=== PATIENT | female | born 1940 | race Caucasian/White ===

== ENCOUNTER 2020-04-10 07:20 | Day surgery (SDC) | payer MEDICARE, OTHER ==
[~2020-04-10] VITALS: Ht 152.4 cm; Wt 61.2 kg
--- NOTE | ~2020-04-10 | OR ---
[facility] [address] [place], [place] [address] Draft DATE OF OPERATION: 04/10/2020 SURGEON: Ross Moreno MD PREOPERATIVE DIAGNOSES: 1. Left lower abdominal pain. 2. Right perineal skin lesion described by patient. 3. Dysphagia and distant history of Hill repair in 2010 with previous diagnosis of eosinophilic esophagitis. POSTOPERATIVE DIAGNOSES: 1. 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 2. Antral gastritis. 3. Intact flap valve at GE junction. 4. Normal colon except for mild edema and inflammation of rectosigmoid and rectum. PROCEDURES: 1. Esophagogastroduodenoscopy with biopsy. 2. Total colonoscopy to cecum with biopsy. ANESTHESIA: Intravenous sedation, fentanyl 150 mcg, Versed 8 mg total. INDICATION: This 80-year-old white woman is a patient of Dr. Gonsalez and well known to me from the past. In 2008, she underwent Hill posterior gastropexy for intractable reflux disease. This did solve her reflux though she later developed dysphagia requiring balloon dilation in 2014. Subsequent upper endoscopy by me showed what was considered eosinophilic esophagitis based on biopsies. Admittedly, the midesophageal biopsies did not show eosinophilic changes, the distal esophagus did. She was subsequently evaluated by a punch machine operator at [facility], who disputed the idea of the eosinophilic esophagitis. She continues to have episodes of dysphagia. Motility testing was offered to her at [facility], but she declined as there would be nothing therapeutically that could be offered if she did have dysmotility. In any case, she currently has complaints of dysphagia, though she does take Protonix 40 mg b.i.d. She has no hematemesis or weight loss problems. Her swallowing is not nearly as bad as it was in the past, but remains an issue for her. Additionally, she has left lower abdominal pain and has not had colonoscopy in quite some time. She is admitted at this time to undergo upper endoscopy and colonoscopy. PATIENT NAME: LUIS PRECIADO OPERATIVE REPORT DATE OF : 40 REPORT #: [id number] PHYSICIAN: ROSS MORENO MD PCP: SUN GONSALEZ MD REPORT IS CONFIDENTIAL AND NOT TO BE RELEASED WITHOUT AUTHORIZATION [facility] [address] [place], [place] [address] Draft She understands the risks of bleeding, infection, perforation. FINDINGS: Upper endoscopy did show concentric rings within the esophagus highly suggestive of eosinophilic esophagitis. There was distal esophageal stricture, which was broken up by passage of the scope into the stomach. She did have antral gastritis and mild duodenitis. CLOtest was negative. Biopsies were obtained. Notably, the flap valve from Hill reconstruction was still intact and looked quite good actually. On colonoscopy, the prep was good. Complete colonoscopy was undertaken of the cecum with no sign of polyps or diverticular formation, though she did have edema and mild inflammation in the rectum and rectosigmoid. DESCRIPTION OF PROCEDURE: The patient was brought to the endoscopy suite and given topical Hurricaine spray hypopharyngeal anesthesia and placed in lateral decubitus position. She was given intravenous sedation to the point of slurred speech and nystagmus with full cardiopulmonary monitoring. A bite block was placed. An Olympus video upper endoscope passed in the hypopharynx. The vocal cords appeared normal and scope was passed in the esophagus and concentric rings of the esophagus were noted suggestive of eosinophilic esophagitis. In the distal portion, there was a more dense stricture and initially, the scope did not easily pass into the stomach, but then with gentle pressure did and the scope was then passed into the stomach and antral folds were normal. There was edema and inflammation of the antrum. Pylorus was normal. Scope was passed through it into the duodenum, the duodenum was mildly inflamed. Biopsies were taken of the duodenum. The scope was withdrawn and biopsy was then taken of the antrum. NINA and pathologic testing were undertaken as well. Retroflexed view showed the flap valve to be of good configuration surprisingly so. The scope was withdrawn to the distal esophagus and areas of denuded epithelium from passage of the scope were observed. Biopsies were taken of distal esophageal mucosa and further biopsies taken more proximally in the mid and proximal esophagus. Plans were then made for colonoscopy. The patient asked me to examine the perineum as she had a "sore" in the right perineal area. Examination showed a somewhat papillary, but generally flattened skin lesion without true excoriation or ulceration. It was not clearly malignant, though there was some suspicion about it. The scope was then passed into the rectum and manipulated throughout the colon ultimately intubating the cecum. The scope was carefully withdrawn and examination showed no sign of polyps, obvious diverticular formation, colitis, or cancer. There was mild inflammation of the sigmoid and rectum and biopsies were obtained there. She had some hemorrhoidal changes as well. A photo was taken of the perineal lesion as well. The scope was removed and the patient was taken to the recovery room in good condition. CONCLUDING DIAGNOSES: PATIENT NAME: LUIS PRECIADO OPERATIVE REPORT DATE OF : 40 REPORT #: [id number] PHYSICIAN: ROSS MORENO MD PCP: SUN GONSALEZ MD REPORT IS CONFIDENTIAL AND NOT TO BE RELEASED WITHOUT AUTHORIZATION [address] [place] [address] Draft 1. Distal esophageal stricture with antral gastritis. I remain suspicious of the eosinophilic esophagitis given her symptoms and clinical course, we await pathology. 2. Mild edema of rectum and sigmoid. Likely to be pathologically inconsequential, but biopsies were pending. The perineal skin lesion should be biopsied at minimum. PLAN: She will see us back in the office in 4 weeks or so and I will review her options on all these matters. MD CIARA Stafford/DELLA /[id number] cc: Dr. Gonsalez Copies: ~ PATIENT NAME: LUIS PRECIADO OPERATIVE REPORT DATE OF : 40 REPORT #: [id number] PHYSICIAN: ROSS MORENO MD PCP: SUN GONSALEZ MD REPORT IS CONFIDENTIAL AND NOT TO BE RELEASED WITHOUT AUTHORIZATION
[~2020-04-10 07:20] MED LIST: ASPIRIN EC81 MG PO; CEPHALEXIN250 MG PO; CLOBETASOL PROP15 G1 TOP; DOXEPIN HCL50 MG PO; FLOVENT HFA12 GM INH; KEFLEX500 MG PO; LEVOTHYROXINE50 MCG PO; LEVOTHYROXINE75 MCG PO; LOVASTATIN20 MG PO; PANTOPRAZOLE SO40 MG PO; SUCRALFATE1 GM PO; SULFAZINE500 MG PO
[2020-04-10] MEDS ORDERED: PROMETHAZINE HC25 M1 PO (07:42)
[2020-04-10] MEDS ORDERED: RIZATRIPTAN5 MG PO (07:42)
--- NOTE | 2020-04-10 08:10 | NUR ---
PER PT, ONLY BANDAIDS CAUSE SKIN IRRITATION, NOT TAPE. IV TUBING SECURED ON FOREARM WITH TAPE.
--- NOTE | 2020-04-10 10:38 | NUR ---
04/10/20 1038 Vane Gresham 1029 PT ARRIVED IN PACU SLEEPY WITH NO C/O'S. ABD SOFT.
--- NOTE | 2020-04-11 18:01 | PATH ---
[facility] [address] [place], [place] [address] Signed SPECIMEN(S): A DUODENUM SPECIMEN(S): B ANTRUM SPECIMEN(S): C LOWER ESOPHAGUS SPECIMEN(S): D MIDDLE ESOPHAGUS SPECIMEN(S): E SIGMOID SPECIMEN(S): F RECTUM SPECIMEN SOURCE: A. DUODENUM B. ANTRUM C. LOWER ESOPHAGUS D. MIDDLE ESOPHAGUS E. SIGMOID F. RECTUM CLINICAL HISTORY: Oropharyngeal dysphagia, eosinophilic esophagitis, left lower abdominal pain. Post op: Mild proctitis, esophagitis, probable eosinophilic esophagitis. MICROSCOPIC DESCRIPTION: Histologic sections of all submitted blocks are examined by light microscopy. These findings, together with the gross examination, support the pathologic diagnosis. FINAL PATHOLOGIC DIAGNOSIS: A. Duodenum, biopsy: - Duodenal mucosa with no histopathologic abnormality. - Negative for increased intraepithelial lymphocytes. - Negative for dysplasia or malignancy. B. Stomach, antrum, biopsy: - Antral mucosa with reactive gastropathy. - Negative for Helicobacter organisms on HE stain. - Negative for dysplasia or malignancy. C. Esophagus, lower, biopsy: - Squamous mucosa with acute and chronic inflammation and reactive changes. - Focal non-invasive fungal forms identified. - Negative for increased intraepithelial eosinophils. - Negative for intestinal metaplasia, dysplasia, or malignancy. - See Comment. D. Esophagus, middle, biopsy: - Squamous mucosa with acute and chronic inflammation and reactive changes. - Negative for increased intraepithelial eosinophils. PATIENT NAME: LUIS PRECIADO PATHOLOGY DATE OF : 40 REPORT #: [id number] PHYSICIAN: CINTHIA PATHOLOGY PCP: SUN GUERRA MD REPORT IS CONFIDENTIAL AND NOT TO BE RELEASED WITHOUT AUTHORIZATION [facility] [address] [place], [place] [address] Signed - Negative for intestinal metaplasia, dysplasia, or malignancy. - See Comment. E. Colon, sigmoid, biopsy: - Fragments of colonic mucosa with no histopathologic abnormality. - Negative for dysplasia or malignancy. F. Rectum, biopsy: - Fragments of rectal mucosa with no histopathologic abnormality. - Negative for dysplasia or malignancy. COMMENT: Regarding specimens C and D: PAS/D stains (with appropriately staining controls) are performed. The lower esophageal biopsy demonstrates focal fragments of fungal hyphae above the squamous mucosa; however, fungal organisms are not seen invading within the mucosa. This could represent superficial colonization by Angie. The middle esophageal biopsy is negative for fungal organisms on PAS/D. Viral cytopathic changes are not identified. The findings could be secondary to reflux esophagitis. NAL:cml:C2NR GROSS DESCRIPTION: Six specimens are received in six containers, labeled "BM." A. The specimen, labeled "BM, duodenal biopsy," is received in formalin and consists of two vega soft tissue fragments that measure 0.1 cm in greatest dimension. The specimen is entirely submitted in cassette (A1). B. The specimen, labeled "BM, antrum biopsy," is received in formalin and consists of two vega soft tissue fragments that measure 0.2 cm in greatest dimension. The specimen is entirely submitted in cassette (B1). C. The specimen, labeled "BM, lower esophagus biopsy," is received in formalin and consists of four vega soft tissue fragments that measure 0.2 cm in greatest dimension. The specimen is entirely submitted in cassette (C1). D. The specimen, labeled "BM, mid esophagus biopsy," is received in formalin and consists of multiple vega soft tissue fragments that measure 1.7 x 1.5 x 0.2 cm aggregate. The specimen is entirely submitted in cassette (D1). E. The specimen, labeled "BM, sigmoid colon biopsy," is received in formalin and consists of two vega soft tissue fragments that measure 0.2 cm in greatest PATIENT NAME: LUIS PRECIADO PATHOLOGY DATE OF : 40 REPORT #: [id number] PHYSICIAN: CINTHIA URENA PCP: SUN GUERRA MD REPORT IS CONFIDENTIAL AND NOT TO BE RELEASED WITHOUT AUTHORIZATION [facility] [address] [place], [place] [address] Signed dimension. The specimen is entirely submitted in cassette (E1). F. The specimen, labeled "BM, rectum biopsy," is received in formalin and consists of two vega soft tissue fragments that measure 0.2 cm in greatest dimension. The specimen is entirely submitted in cassette (F1). JS (under the direct supervision of a pathologist) The Gross Description was prepared using a voice recognition system. The report was reviewed for accuracy; however, sound-alike word errors, addition and/or deletions may occur. If there is any question about this report, please contact Client Services. PERFORMING LABORATORY: The technical component was performed by [facility], [address] [place] [id number] (Health And Safety Manager: Radha Carey MD; CLIA# [id number]). Professional interpretation was performed by [facility], [facility], [address] [address] (CLIA# [id number]). Diagnostician: Ramya Nvaas MD Pathologist Electronically Signed 04/11/2020 Copies: ~ PATIENT NAME: LUIS PRECIADO PATHOLOGY DATE OF : 40 REPORT #: [id number] PHYSICIAN: CINTHIA URENA PCP: SUN GUERRA MD REPORT IS CONFIDENTIAL AND NOT TO BE RELEASED WITHOUT AUTHORIZATION
== END 2020-04-10 11:35 | disposition home or self-care (01) ==
LOC: DS 07:20 → OPS 07:20
PROVIDERS: ATTEND Surgery
PROC: 0DB28ZX Excision of Middle Esophagus, Via Natural or Artificial Opening Endoscopic, Diagnostic (ICD-10-PCS; 2020-04-10)
PROC: 0DB38ZX Excision of Lower Esophagus, Via Natural or Artificial Opening Endoscopic, Diagnostic (ICD-10-PCS; 2020-04-10)
PROC: 0DBP8ZX Excision of Rectum, Via Natural or Artificial Opening Endoscopic, Diagnostic (ICD-10-PCS; 2020-04-10)
PROC: 0DBN8ZX Excision of Sigmoid Colon, Via Natural or Artificial Opening Endoscopic, Diagnostic (ICD-10-PCS; 2020-04-10)
PROC: 0DB98ZX Excision of Duodenum, Via Natural or Artificial Opening Endoscopic, Diagnostic (ICD-10-PCS; principal; 2020-04-10 08:30)
PROC: 0DB78ZX Excision of Stomach, Pylorus, Via Natural or Artificial Opening Endoscopic, Diagnostic (ICD-10-PCS; 2020-04-10 08:30)
DX: R10.32 Left lower quadrant pain (principal); L98.8 Other specified disorders of the skin and subcutaneous tissue; K20.9 Esophagitis, unspecified; K31.9 Disease of stomach and duodenum, unspecified; F41.9 Anxiety disorder, unspecified; F32.9 Major depressive disorder, single episode, unspecified; K21.9 Gastro-esophageal reflux disease without esophagitis; E78.5 Hyperlipidemia, unspecified; E03.9 Hypothyroidism, unspecified; Z91.048 Other nonmedicinal substance allergy status; Z88.1 Allergy status to other antibiotic agents; Z88.8 Allergy status to other drugs, medicaments and biological substances; Z79.899 Other long term (current) drug therapy; Z98.890 Other specified postprocedural states; Z90.49 Acquired absence of other specified parts of digestive tract
CPT/HCPCS: 99153; G0500; J2250; J3010

== ENCOUNTER 2021-06-24 19:15 | Emergency (ER) | payer MEDICARE, OTHER ==
[~2021-06-24] VITALS: Ht 152.4 cm; Wt 61.2 kg
[~2021-06-24 19:15] MED LIST changes: +PROMETHAZINE HC25 M1 PO; +RIZATRIPTAN5 MG PO
[2021-06-24] MEDS ORDERED: CEPHALEXIN250 MG PO (19:26)
[2021-06-24] MEDS ORDERED: LEVOTHYROXINE75 MCG PO (19:26)
== END 2021-06-24 22:10 | disposition home or self-care (01) ==
LOC: ED 19:15
DX: G43.909 Migraine, unspecified, not intractable, without status migrainosus (principal); Z88.1 Allergy status to other antibiotic agents; Z91.048 Other nonmedicinal substance allergy status; Z88.8 Allergy status to other drugs, medicaments and biological substances; Z79.899 Other long term (current) drug therapy
CPT/HCPCS: 80053; 81001; 83735; 85025; 96374; 96375; 99283-25; J1170; J1200; J1885; J2765; J7030

== ENCOUNTER 2023-04-09 10:57 | Day surgery (SDC) | payer MEDICARE, OTHER ==
[~2023-04-09 10:57] MED LIST changes: +CALCIUM500 MG PO; +CRANBERRY200 MG PO; +MULTI VITAMIN1 EACH PO; +ONDANSETRON ODT8 MG PO; +VENTOLIN HFA18 GM
[2023-04-09 11:21] VITALS: BP 146/51
[2023-04-09] MEDS ORDERED: ROSUVASTATIN CAL5 MG PO (11:26)
[2023-04-09] MEDS ORDERED: FLUTICASONE PRO16 GM NAS (11:26)
--- NOTE | 2023-04-09 14:18 | NUR ---
1410-PATIENT UPDATED ON SURGERY TIME. PATIENT UP TO RESTROOM. 1415-PATIENT BACK TO ROOM. MACK LAKHWINDER ON.
--- NOTE | 2023-04-09 14:59 | NUR ---
04/09/23 1459 Izzy Gracia 1451- PT ARRIVES IN PACU, AWAKE, LEFT LATERAL SEMI MORENO POSITION. LR INFUSING TO IV IN RW. O2 AT 3L PER NC. PT DENIES NAUSEA OR NEW PAIN AT THIS TIME. REPORTS CHRONIC ABD PAIN DUE TO "BOWEL ISSUES". NO OTHER COMPLAINTS.
[2023-04-09 15:37] VITALS: BP 121/49
--- NOTE | 2023-04-11 10:44 | OR ---
[facility] [address] [place], [place] [address] Signed DATE OF OPERATION: 04/09/2023 SURGEON: Ross Moreno MD PREOPERATIVE DIAGNOSES: 1. Longstanding dysphagia. 2. History of Hill posterior gastropexy (reconstruction of the GE junction). 3. Prior history of probable eosinophilic esophagitis. POSTOPERATIVE DIAGNOSIS: 1. Chronic total esophagitis without distinct stricture. 2. Good flap valve consistent with successful anti-reflux procedure. PROCEDURE: Esophagogastroduodenoscopy with biopsy. ANESTHESIA: Intravenous sedation, fentanyl 100 mcg and Versed 3 mg. INDICATION: This 83-year-old white woman is a patient of Dr. Sun Gonsalez and a number of years ago, underwent Hill posterior gastropexy for intractable reflux disease and hiatal hernia. She had done well regarding her reflux, but a previous upper endoscopy in 2014 for dysphagia showed findings consistent with the eosinophilic esophagitis. She has had recurrence of poor swallowing in October of 2022 off her topical steroid, though she does take pantoprazole 40 mg b.i.d. She feels that her swallowing problems are "in the back of the throat." For various reasons, she discontinued her fluticasone as I had recommended. She is now here to undergo upper endoscopy to better characterize her problem mindful that she may have persistent eosinophilic esophagitis. FINDINGS: of the esophagus both proximally and distally was covered with some thin tenacious oral contents. This may be indicative of poor motility. Esophagus was not particularly dilated. She did have chronic esophagitis throughout including the distal portion. The stomach itself was normal as was the duodenum. CLOtest was negative. Retroflexed view showed the reconstructive flap valve to be in good condition. There was no sign of hiatal hernia proper. Electronically Signed By: ROSS MORENO MD 04/11/23 1044 PATIENT NAME: LUIS PRECIADO OPERATIVE REPORT DATE OF : 40 REPORT #: [id number] PHYSICIAN: ROSS MORENO MD PCP: SUN GONSALEZ MD REPORT IS CONFIDENTIAL AND NOT TO BE RELEASED WITHOUT AUTHORIZATION [facility] [address] [place], [place] [address] Signed DESCRIPTION OF PROCEDURE: The patient was brought to the endoscopy suite and given topical lidocaine hypopharyngeal anesthesia and placed in the lateral decubitus position. She was given intravenous sedation to the point of slurred speech and nystagmus with full cardiopulmonary monitoring. A bite block was placed. An Olympus video upper endoscope was passed in the hypopharynx. The vocal cords appeared normal. Scope was advanced in the proximal esophagus, which was slightly with some resistance immediately noting some adherent and somewhat tenacious food material that was gelatinous in consistency. This was irrigated and the scope was passed down the entire esophagus, which looked the same. The scope was then passed into the stomach which was insufflated with air. The mucosa of the stomach was normal as was the antral motility. The pylorus was normal. Scope was passed through into the duodenum, which was normal. Biopsies were taken of the duodenum to assess for celiac disease and the scope was withdrawn. Biopsies were taken of the antrum and more proximal stomach for NINA and pathologic testing. Retroflexed view confirmed intact flap valve from prior reconstruction. Scope was then withdrawn to the distal esophagus where inflammatory changes were noted, but no discrete stricture. Biopsies were obtained there. The scope was withdrawn and biopsies taken in the mid and upper esophagus as there was a high probability in my opinion that this represents the eosinophilic esophagitis. The scope was then withdrawn and removed and the patient was taken to the recovery room in good condition. 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 Notably, she remains on PPI medication and the previous anti-reflux operation appears to be intact. PLAN: We will recommend continued use of Protonix 40 mg p.o. b.i.d. We will additionally prescribe Flonase 2 sprays b.i.d. three weeks on and one week off. We will see the patient back in 4 to 6 weeks and assess her progress and review her pathology reports. If this is not helpful to her a video esophagram might be considered at that point to assess her motility. Ross Moreno MD Electronically Signed By: ROSS MORENO MD 04/11/23 1044 PATIENT NAME: LUIS PRECIADO OPERATIVE REPORT DATE OF : 40 REPORT #: [id number] PHYSICIAN: ROSS MORENO MD PCP: SUN GONSALEZ MD REPORT IS CONFIDENTIAL AND NOT TO BE RELEASED WITHOUT AUTHORIZATION [address] [address] Signed CIARA/DELLA /[id number] cc: Sun Gonsalez MD Copies: SUN GONSALEZ MD ~ Electronically Signed By: ROSS MORENO MD 04/11/23 1044 PATIENT NAME: LUIS PRECIADO OPERATIVE REPORT DATE OF : 40 REPORT #: [id number] PHYSICIAN: ROSS MORENO MD PCP: SUN GONSALEZ MD REPORT IS CONFIDENTIAL AND NOT TO BE RELEASED WITHOUT AUTHORIZATION
--- NOTE | 2023-04-14 18:17 | PATH ---
[facility] [address] [place], [place] [address] Signed SPECIMEN(S): A DUODENAL BIOPSY SPECIMEN(S): B ANTRUM/PYLORUS BIOPSY SPECIMEN(S): C LOWER ESOPHAGEAL BIOPSY SPECIMEN(S): D MIDDLE ESOPHAGEAL BIOPSY SPECIMEN SOURCE: A. DUODENAL BIOPSY B. ANTRUM/PYLORUS BIOPSY C. LOWER ESOPHAGEAL BIOPSY D. MIDDLE ESOPHAGEAL BIOPSY CLINICAL HISTORY: Eosinophilic esophagitis; GERD. Post: Esophagitis, probable, eosinophilic esophagitis. FINAL PATHOLOGIC DIAGNOSIS: A. Duodenal biopsy: - Benign duodenal mucosa, negative for specific diagnostic abnormality. B. Antrum / pylorus biopsy: - Benign gastric-type mucosa with focal slight chronic inflammation. - Negative for evidence of Helicobacter organisms on routine HE-stained sections. C. Lower esophageal biopsy: - Esophageal mucosa with acute epithelial inflammation (esophagitis). - PAS with diastase stain is positive for fungal organisms. - Negative for glandular mucosa. - Negative for significant increased epithelial eosinophils. D. Middle esophageal biopsy: - Benign esophageal mucosa with increased acute epithelial inflammation (esophagitis). - A few scattered epithelial eosinophils are present, insufficient for eosinophilic esophagitis. - PAS with diastase stain is negative for fungal organisms. JVR:[facility] MICROSCOPIC EXAMINATION: Histologic sections of all submitted blocks are examined by light microscopy. These findings, together with the gross examination, support the pathologic diagnosis. PAS with diastase stain is performed with appropriate controls on block (C1) and is positive for fungal organisms. PATIENT NAME: LUIS PRECIADO PATHOLOGY DATE OF : 40 REPORT #: [id number] PHYSICIAN: CINTHIA URENA PCP: SUN GUERRA MD REPORT IS CONFIDENTIAL AND NOT TO BE RELEASED WITHOUT AUTHORIZATION [facility] [address] [place], [place] [address] Signed PAS with diastase stain is performed with appropriate controls on block (D1) and is negative for fungal organisms. JVR:[facility] GROSS DESCRIPTION: A. The specimen, labeled and designated "Meengs, B, duodenum (NOS) biopsy," is received in formalin and consists of 3 vega soft tissue fragments measuring 0.3 x 0.4 cm in greatest dimension, specimens are submitted entirely in (A1). B. The specimen, labeled and designated "Meengs, B, stomach, antrum/pylorus biopsy," is received in formalin and consists of 3 vega-brown soft tissue fragments measuring 0.3 x 0.5 cm in greatest dimension, specimens are submitted entirely in (B1). C. The specimen, labeled and designated "Meengs, B, esophagus lower esophagus biopsy," is received in formalin and consists of 2 white soft tissue fragments measuring 0.4 x 0.5 cm in greatest dimension, all specimens are submitted entirely in (C1). D. The specimen, labeled and designated "Meengs, B, esophagus mid esophagus biopsy," is received in formalin and consists of 4 vega-white soft tissue fragments measuring 0.4 x 0.6 cm in greatest dimension, specimens are submitted entirely in (D1). [facility] (under the direct supervision of a pathologist) The Gross Description was prepared using a voice recognition system. The report was reviewed for accuracy; however, sound-alike word errors, addition and/or deletions may occur. If there is any question about this report, please contact Client Services. PERFORMING LABORATORY: Technical component was performed by [facility], [address] [place] [address], [place] [address] (CLIA# [id number]. [facility], [address] [place], [place] [address]., [place] [address] (CLIA#: [id number]). Diagnostician: Immanuel Field MD Pathologist Electronically Signed 04/14/2023 Copies: PATIENT NAME: LUIS PRECIADO PATHOLOGY DATE OF : 40 REPORT #: [id number] PHYSICIAN: CINTHIA PATHOLOGY PCP: SUN GUERRA MD REPORT IS CONFIDENTIAL AND NOT TO BE RELEASED WITHOUT AUTHORIZATION [facility] [address] [facility] [place], [place] [address] Signed ~ PATIENT NAME: LUIS PRECIADO PATHOLOGY DATE OF : 40 REPORT #: [id number] PHYSICIAN: [facility] PCP: SUN GUERRA MD REPORT IS CONFIDENTIAL AND NOT TO BE RELEASED WITHOUT AUTHORIZATION
== END 2023-04-09 15:30 | disposition home or self-care (01) ==
LOC: OPS 10:57 → DS 10:57 → OPS 12:15
PROVIDERS: ATTEND Surgery
PROC: 0DB68ZX Excision of Stomach, Via Natural or Artificial Opening Endoscopic, Diagnostic (ICD-10-PCS; 2023-04-09)
PROC: 0DB18ZX Excision of Upper Esophagus, Via Natural or Artificial Opening Endoscopic, Diagnostic (ICD-10-PCS; 2023-04-09)
PROC: 0DB28ZX Excision of Middle Esophagus, Via Natural or Artificial Opening Endoscopic, Diagnostic (ICD-10-PCS; 2023-04-09)
PROC: 0DB38ZX Excision of Lower Esophagus, Via Natural or Artificial Opening Endoscopic, Diagnostic (ICD-10-PCS; 2023-04-09)
PROC: 0DB98ZX Excision of Duodenum, Via Natural or Artificial Opening Endoscopic, Diagnostic (ICD-10-PCS; principal; 2023-04-09 12:15)
DX: K20.0 Eosinophilic esophagitis (principal); E03.9 Hypothyroidism, unspecified; G43.909 Migraine, unspecified, not intractable, without status migrainosus
CPT/HCPCS: 88305; 88312; 99153; G0500; J2250; J3010; J7121